=== PATIENT | female | born 1980 | race Two or more races ===

== ENCOUNTER 2020-04-22 10:11 | Outpatient (CLI) | payer OTHER | END 2020-04-22 10:35 | disposition home or self-care (01) | LOC: RX STUDY 10:11 | PROVIDERS: ATTEND Obstetrics & Gynecology | DX: N84.0 Polyp of corpus uteri (principal) ==

== ENCOUNTER → 2020-05-14 12:33 | Outpatient (CLI) | payer OTHER | END | disposition home or self-care (01) | LOC: LAB 12:33 | PROVIDERS: ATTEND Obstetrics & Gynecology | DX: Z20.828 Contact with and (suspected) exposure to other viral communicable diseases (principal) ==

== ENCOUNTER 2020-05-16 05:55 | Day surgery (SDC) | payer OTHER | END 2020-05-16 17:30 | disposition home or self-care (01) | LOC: CIR.AMB 05:55 | PROVIDERS: ATTEND Obstetrics & Gynecology | DX: N84.0 Polyp of corpus uteri (principal); Z20.828 Contact with and (suspected) exposure to other viral communicable diseases ==

== ENCOUNTER 2020-10-17 07:02 | Day surgery (SDC) | payer OTHER ==
[~2020-10-17 07:02] MED LIST: DAILY VALUE1 EACH PO
[2020-10-17] MEDS ORDERED: PERCOCET 5-3251 EACH PO (21:18)
[2020-10-17] MEDS ORDERED: RECTICARE30 GM TOP (21:18)
[2020-10-17] MEDS ORDERED: FLAGYL500MG PO (21:26)
[2020-10-17] MEDS ORDERED: DICLOFENAC SODI75 MG PO (21:26)
== END 2020-10-17 22:05 | disposition home or self-care (01) ==
LOC: CIR.AMB 07:02
PROVIDERS: ATTEND Surgery
DX: K60.1 Chronic anal fissure (principal); Z20.822 Contact with and (suspected) exposure to COVID-19

== ENCOUNTER 2024-09-25 05:30 | Day surgery (SDC) | payer OTHER ==
[2024-09-20 10:57] LABS: URINE APPEARANCE Clear; URINE BILIRRUBIN Negative (NEGATIVE); URINE BLOOD Negative; URINE COLOR Yellow; URINE GLUCOSE Negative (NEGATIVE); URINE KETONE Negative (NEGATIVE); URINE LEUKOCYTE Negative; URINE NITRATE Negative; URINE PROTEIN Negative (NEGATIVE); URINE UROBILINOGEN 0.2 E.U./dl
[2024-09-20 11:03] LABS: URINE BACTERIA 985.3 uL (0.0-1933); URINE EPITHELIAL CELLS 21.7 uL (0.0-38.8); URINE RBC 2.2 uL (0.0-20.8); URINE WBC 2.2 uL (0.0-23.2)
[2024-09-20 11:12] LABS: BASO % 0.6 % (0.1-1.2); EOS # 0.07 (0.04-0.54); HEMATOCRIT 37.1 % (34.1-44.9); HEMOGLOBIN 12.1 g/dL (11.2-15.7); LYMPH % 36.4 % (19.3-53.1); MEAN CORPUSCULAR HEMOGLOBIN 29.2 pg (25.6-32.2); MONO # 0.37 (0.24-0.82); MONO % 5.4 % (4.7-12.5); NEUT # 3.88 (1.56-6.13); NEUT % 56.5 % (34.0-71.1); PLATELET COUNT 240 K/uL (163-369); RED BLOOD COUNT 4.14 M/uL (3.93-5.22)
[2024-09-20 11:25] VITALS: BP 118/74
[2024-09-20 11:41] LABS: INR 0.98; PARTIAL THROMBOPLASTIN TIME 26.5 SECONDS (22.0-34.0); PROTHROMBIN TIME 10.7 SECONDS (9.0-11.5)
[2024-09-20 12:01] LABS: ALBUMIN 3.9 gm/dL (3.4-5.0); BILIRUBIN TOTAL 0.3 mg/dL (0.3-1.2); CALCIUM 8.8 mg/dL (8.5-10.1); CREATININE SERUM 0.77 mg/dL (0.55-1.02); GFR 81.82; GLOBULINA 3.3 G/DL (2.4-3.5); POTASSIUM 4.2 mEq/L (3.5-5.1); TOTAL PROTEIN 7.2 gm/dL (6.4-8.2)
[~2024-09-25] VITALS: Ht 162.6 cm; Wt 61.2 kg
[~2024-09-25 05:30] MED LIST changes: +DICLOFENAC SODI75 MG PO; +FLAGYL500MG PO; +PERCOCET 5-3251 EACH PO; +RECTICARE30 GM TOP
[2024-09-25] MEDS ORDERED: CHLORHEXIDINE GLUCONATE 120 ML BOTTLE TOP ONE (13:00)
[2024-09-25] MEDS ORDERED: ONDANSETRON HCL 2 MG/ML VIAL IV ONE (13:15)
[2024-09-25] MEDS ORDERED: KETOROLAC TROMETHAMINE 30 MG VIAL IV ONE (13:30)
[2024-09-25] MEDS ORDERED: MORPHINE SULFATE 4 MG/ML VIAL IV ONE (13:55)
[2024-09-25] MEDS ORDERED: IBUprofen 800 MG TABLET PO SCH (14:00)
== END 2024-09-25 16:05 | disposition home or self-care (01) ==
LOC: CIR.AMB 05:30
PROVIDERS: ATTEND Obstetrics & Gynecology
DX: N70.11 Chronic salpingitis (principal); R10.2 Pelvic and perineal pain; Z88.8 Allergy status to other drugs, medicaments and biological substances